=== PATIENT | male | born 1985 | race Caucasian/White ===

== ENCOUNTER 2017-04-05 22:47 | Emergency (ER) | payer OTHER ==
[~2017-04-05] VITALS: Ht 177.8 cm; Wt 81.6 kg
[2017-04-05] MEDS ORDERED: LIDOCAINE 1% INJ 50 ML MDV IJ ONE ×2 (22:55→23:00)
--- NOTE | 2017-04-05 22:55 | NUR ---
To bed 12 a 31 yo male patient bbra and lapd; per pt "took unknown amount of pain medication," c/o right wrist pain. Upon arrival to er, patient is lethargic, arousable to verbal and tactile stimuli. breathing even and unlabored. presence of 2 taser barbs at the back noted. gowned. comfort and safety measures rendered. ongoing cardiac and vs monitoring.
[2017-04-05] MEDS ORDERED: IV NS 0.9% 1,000 ML BAG IV ONE (23:00)
--- NOTE | 2017-04-05 23:13 | NUR ---
started on the lac g18, blood drawn and sent to lab.
[2017-04-05 23:25] LABS: BASOPHILS # (AUTO) 0.1 /CMM (0.0-0.2); BASOPHILS % (AUTO) 0.9 % (0.0-2.0); EOSINOPHILS # (AUTO) 0.2 /CMM (0.0-0.7); EOSINOPHILS % (AUTO) 2.5 % (0.0-6.0); HEMATOCRIT 38 % (39-51); LYMPHOCYTES # (AUTO) 2.6 /CMM (0.8-4.8); LYMPHOCYTES % (AUTO) 38.9 % (20.0-44.0); MEAN CORPUSCULAR HEMOGLOBIN 28 PG (26.0-33.0); MEAN CORPUSCULAR HGB CONC 34 g/dl (31.0-36.0); MEAN CORPUSCULAR VOLUME 83 fL (80-96); MONOCYTES # (AUTO) 0.8 /CMM (0.1-1.30); MONOCYTES % (AUTO) 11.6 % (2.0-12.0); NEUTROPHILS % (AUTO) 46.1 % (43.0-81.0); PLATELET COUNT (AUTO) 279 /CMM (150-450); RED BLOOD CELL COUNT(AUTO) 4.59 MIL/uL (4.5-6.0); WHITE BLOOD COUNT (AUTO) 6.6 K/uL (4.3-11.0)
[2017-04-05 23:35] LABS: CALCIUM, SERUM 8.8 mg/dL (8.5-10.1); CARBON DIOXIDE 29 mmol/L (21-32); CHLORIDE 104 mmol/L (98-107); CREATININE 1.1 mg/dL (0.6-1.3); GLUCOSE 104 mg/dL (74-106); POTASSIUM 3.9 mmol/L (3.5-5.1); SODIUM SERUM 140 mmol/L (136-145); UREA NITROGEN, BLOOD 15 mg/dL (7-18)
[2017-04-05 23:37] LABS: INR 0.94 (0.87-1.13); PROTHROMBIN TIME 9.8 SECS (9.5-12.7)
[2017-04-05 23:40] LABS: CREATINE KINASE, TOTAL 328 U/L (39-308)
[2017-04-05 23:41] LABS: ALANINE AMINOTRANSFERASE 21 U/L (12-78); ALBUMIN 3.8 g/dL (3.4-5.0); ALCOHOL, BLOOD < 3 mg/dL (0-0); ALKALINE PHOSPHATASE 59 U/L (46-116); ASPARTATE AMINOTRANSFERASE 24 U/L (15-37); BILIRUBIN,DIRECT 0.1 mg/dL (0.0-0.2); BILIRUBIN,TOTAL 0.4 mg/dL (0.2-1.0); SALICYLATE 3.1 mg/dL (2.8-20.0)
[2017-04-05 23:42] LABS: ACETAMINOPHEN 0 ug/ml (10-30)
--- NOTE | 2017-04-05 23:45 | NUR ---
patient to ct.
[2017-04-06 00:03] LABS: CREATINE KINASE MB 5.3 ng/mL (0-3.6)
--- NOTE | 2017-04-06 01:49 | NUR ---
patient is sleeping comfortably in bed, nad noted. vss.
[2017-04-06 03:30] VITALS: BP 129/67
--- NOTE | 2017-04-06 03:32 | NUR ---
IV removed. Catheter intact and site benign. Pressure and 4x4 applied to site. No bleeding noted. Patient discharged to police custody in stable condition. Written and verbal after care instructions given. Patient verbalizes understanding of instruction. Patient is ambulatory with steady gait, no further complaints. vss. nad on dc.
== END 2017-04-06 03:32 ==
LOC: ER 22:57
DX: S09.90XA Unspecified injury of head, initial encounter (principal); S00.81XA Abrasion of other part of head, initial encounter; S20.451A Superficial foreign body of right back wall of thorax, initial encounter; X58.XXXA Exposure to other specified factors, initial encounter; Y93.89 Activity, other specified; Y92.89 Other specified places as the place of occurrence of the external cause; Y99.8 Other external cause status
CPT/HCPCS: 36415; 70450-TC; 71010-TC; 72125-TC; 80048-TC; 80076-TC; 82550-TC; 82553-TC; 82962-TC; 85025-TC; 85730-TC; G0480; J3490; J7030